=== PATIENT | female | born 1960 | race Caucasian/White ===

== ENCOUNTER → 2020-04-16 | Outpatient (CLI) | payer BC ==
--- NOTE | 2020-04-16 14:00 | Diagnostic Imaging Report ---
INDICATION: Chronic left knee pain. Time of exam 1:39 PM 3 views of the left knee were obtained. There is medial and patellofemoral compartmental degenerative change with joint space narrowing and marginal spurring. Lateral compartment is maintained. Articular surfaces are smooth. No fracture, dislocation or effusion is detected. IMPRESSION: Degenerative changes. No acute bony abnormality is detected. Dictated by: Dictated on workstation # [id number]
== END ==
LOC: RAD FS 13:30
PROVIDERS: ATTEND Nurse Practitioner
DX: M17.12 Unilateral primary osteoarthritis, left knee (principal)
CPT/HCPCS: 73562

== ENCOUNTER → 2021-02-15 | Outpatient (CLI) | payer BC ==
--- NOTE | 2021-02-15 11:34 | Diagnostic Imaging Report ---
INDICATION: Left knee pain. COMPARISON: 04/16/2020. TECHNIQUE: Four radiographic views of the left knee were obtained. FINDINGS: There is no acute fracture or dislocation. The osseous structures are intact. The joint spaces are maintained. There are moderate osteoarthritic changes involving the medial tibial femoral compartment. There is advanced joint space narrowing with sclerotic remodeling of the articular surfaces. Osteophyte formations are also noted. There is no large joint effusion. No unexpected radiopaque foreign bodies are seen. IMPRESSION: 1. No acute fracture or dislocation of the left knee. 2. Moderate osteoarthritic changes, primarily involving the medial tibiofemoral compartment. Dictated by: Dictated on workstation # [id number]
== END ==
LOC: RAD FS 10:52
PROVIDERS: ATTEND Nurse Practitioner
DX: M17.12 Unilateral primary osteoarthritis, left knee (principal)
CPT/HCPCS: 73562

== ENCOUNTER 2021-06-02 05:40 | Outpatient (CLI) | payer BC ==
[~2021-06-02] VITALS: Ht 167.7 cm; Wt 77.1 kg
[2021-06-02 10:41] VITALS: BP 156/91
[2021-06-02 11:26] LABS: BASOPHILS % (AUTO) 1 % (0-10); EOSINOPHILS # (AUTO) 0.1 10^3/uL (0.0-0.3); EOSINOPHILS % (AUTO) 1 % (0-10); HEMATOCRIT 37 % (35-52); HEMOGLOBIN 12.2 g/dL (11.5-16.0); LYMPHOCYTES # (AUTO) 0.8 10^3/uL (1.0-4.0); LYMPHOCYTES % (AUTO) 12 % (12-44); MEAN CORPUSCULAR HEMOGLOBIN 30 pg (25-34); MEAN CORPUSCULAR HGB CONC 33 g/dL (32-36); MEAN CORPUSCULAR VOLUME 88 fL (80-99); MEAN PLATELET VOLUME 10.8 fL (9.0-12.2); MONOCYTES # (AUTO) 0.4 10^3/uL (0.0-1.0); MONOCYTES % (AUTO) 6 % (0-12); NEUTROPHILS # (AUTO) 5.2 10^3/uL (1.8-7.8); NEUTROPHILS % (AUTO) 79 % (42-75); PLATELET COUNT 235 10^3/uL (130-400); WHITE BLOOD COUNT 6.6 10^3/uL (4.3-11.0)
[2021-06-02 11:35] LABS: PROTHROMBIN TIME PATIENT 13.3 SEC (12.2-14.7)
[2021-06-02 11:41] LABS: BILIRUBIN,URINE NEGATIVE (NEGATIVE); CLARITY,URINE CLEAR; COLOR,URINE YELLOW; GLUCOSE, URINE (UA) NEGATIVE (NEGATIVE); KETONES,URINE NEGATIVE (NEGATIVE); LEUKOCYTE ESTERASE ,URINE 1+ (NEGATIVE); NITRITE,URINE NEGATIVE (NEGATIVE); PROTEIN,URINE NEGATIVE (NEGATIVE)
[2021-06-02 11:42] LABS: ALBUMIN 3.7 GM/DL (3.2-4.5); BILIRUBIN,TOTAL 0.3 MG/DL (0.1-1.0); CALCIUM 8.9 MG/DL (8.5-10.1); CREATININE SERUM 0.87 MG/DL (0.60-1.30); POTASSIUM 3.7 MMOL/L (3.6-5.0); TOTAL PROTEIN 6.4 GM/DL (6.4-8.2)
--- NOTE | 2021-06-02 11:44 | Diagnostic Imaging Report ---
EXAMINATION: PA and lateral chest at 11:27 AM. INDICATION: Preop total knee replacement. COMPARISON: There are no prior studies available for comparison. FINDINGS: The heart size is within normal limits. The perihilar markings are somewhat prominent but there is no sign of failure, pneumonia, or pleural effusion. The mediastinum is not widened. The osseous structures are intact. Surgical clips are evident in the right upper quadrant. IMPRESSION: There is no evidence for active disease. Dictated by: Dictated on workstation # [id number]
[2021-06-02 11:48] LABS: ERYTHROCYTE SEDIMENTATION RATE 17 MM/HR (0-30)
[2021-06-02 11:52] LABS: BACTERIA,URINE FEW /HPF; RBC,URINE RARE /HPF
[2021-06-02] MEDS ORDERED: OXYC-556 PO (11:57)
[2021-06-02] MEDS ORDERED: OXYB5TAB13 PO (11:57)
[2021-06-02] MEDS ORDERED: HYDR-700 PO (11:57)
[2021-06-02] MEDS ORDERED: LEVO88CA4 PO (11:57)
[2021-06-02] MEDS ORDERED: ZOLP5TAB7 PO (11:57)
[2021-06-02] MEDS ORDERED: DICY20TA10 PO (11:57)
[2021-06-02] MEDS ORDERED: FLUT9.9S NSEACH (11:57)
[2021-06-02] MEDS ORDERED: LEVO5TAB12 PO (11:57)
[2021-06-02] MEDS ORDERED: SIMV20TA26 PO (11:57)
[2021-06-02] MEDS ORDERED: FEXO-46 PO (11:57)
[2021-06-02] MEDS ORDERED: OMEP20CA18 PO (11:57)
[2021-06-02] MEDS ORDERED: LORA-53 PO (11:57)
[2021-06-02] MEDS ORDERED: CYCL10TA9 PO (11:57)
[2021-06-02] MEDS ORDERED: LOSA50TA63 PO (11:57)
[2021-06-02] MEDS ORDERED: MONT10TA32 PO (11:57)
[2021-06-02] MEDS ORDERED: MELO15TA39 PO (11:57)
== END 2021-06-02 12:02 | disposition home or self-care (01) ==
LOC: PREOP 05:40
PROVIDERS: ATTEND Orthopaedic Surgery
DX: Z01.810 Encounter for preprocedural cardiovascular examination (principal); M17.12 Unilateral primary osteoarthritis, left knee
CPT/HCPCS: 36415; 71046; 80053; 81000; 85025; 85610; 85652; 86850; 86900; 86901; 87077; 87081; 87088; 93005

== ENCOUNTER 2021-06-09 06:04 | Inpatient (IN) | payer BC ==
--- NOTE | 2021-06-02 06:12 | HISTORY AND PHYSICAL ---
DATE OF SERVICE: ADMISSION HISTORY AND PHYSICAL DATE OF SURGERY, DATE OF SERVICE, DATE OF ADMISSION: 06/09/2021. This will be for inpatient admission on 06/09/2021 for left total knee arthroplasty. The patient will require regular inpatient admission due to pain management, need for physical therapy and need for IV pain medication. HISTORY: The patient is a 61-year-old female with complaints of progressively worsening left knee pain. She has undergone treatment with injections as well as anti-inflammatories. She reports the injections do not help at this point. She reports activity limitations because of the knee. She reports difficulty with sleep as well as her activities of daily living because of this, would like to proceed with total knee arthroplasty. Radiographs reveal severe medial and patellofemoral arthrosis. REVIEW OF SYSTEMS: No chest pain, no shortness of breath, no dysuria. PAST MEDICAL HISTORY: Thyroid disease, seasonal rhinitis, reflux and hypertension. PAST SURGICAL HISTORY: Hysterectomy, breast biopsy, cholecystectomy. FAMILY HISTORY: Unknown. PRIMARY CARE PROVIDER: Dr. Gallo. MEDICATIONS: Dicyclomine, hydroxyzine, Vaniqa, Ambien, levothyroxine, omeprazole, oxybutynin, cyclobenzaprine, simvastatin, loratadine, Topamax, diclofenac. ALLERGIES: ERYTHROMYCIN. SOCIAL HISTORY: The patient denies alcohol and tobacco use. PHYSICAL EXAMINATION: GENERAL: The patient is well developed, well nourished, in no acute distress. HEENT: Normocephalic, atraumatic. Pupils are equal, round and reactive to light. Oropharynx is clear. NECK: Supple, with no lymphadenopathy. LUNGS: Clear to auscultation bilaterally. HEART: Regular rate and rhythm. ABDOMEN: Soft, nontender, nondistended. EXTREMITIES: The left knee demonstrates varus alignment. She ambulates with an antalgic gait on the left. She is tender along the medial joint line. She has patellofemoral crepitus with range of motion 0/2/115. No varus or valgus laxity. Negative anterior and posterior drawer. IMPRESSION: Severe left knee osteoarthritis, unresponsive to conservative measures. PLAN: Left total knee arthroplasty. The risks, benefits, options, ramifications and recovery have been discussed at length with the patient. She understands and wishes to proceed. Job ID: [id number] DocumentID: [id number] Dictated Date: 05/25/2021 15:20:23 Edge Grinder Date: 05/25/2021 15:43:43 Dictated By: DAVID THEODORE MD
[~2021-06-09] VITALS: Ht 167 cm; Wt 74.1 kg
[2021-06-09] VITALS (11 sets, daily range): BP systolic 138–163; BP diastolic 73–93
[~2021-06-09 06:04] MED LIST: CYCL10TA9 PO; DICY20TA10 PO; FEXO-46 PO; FLUT9.9S NSEACH; HYDR-700 PO; LEVO5TAB12 PO; LEVO88CA4 PO; LORA-53 PO; LOSA50TA63 PO; MELO15TA39 PO; MONT10TA32 PO; OMEP20CA18 PO; OXYB5TAB13 PO; OXYC-556 PO; SIMV20TA26 PO; ZOLP5TAB7 PO
[2021-06-09] MEDS ORDERED: CEFUROXIME INJECTION 1,500 MG in WATER (STERILE) FOR INJECTION 15 ML IV ONE (06:15)
[2021-06-09] MEDS ORDERED: ROPIVACAINE 5MG/ML 30ML VIAL ONE (06:41)
[2021-06-09] MEDS ORDERED: MIDAZOLAM 2 MG/2 ML (VERSED) VIAL ONE (06:41)
[2021-06-09] MEDS: LACTATED RINGERS 1,000 ML IV PRN ×2 (06:51→07:45)
[2021-06-09] MEDS ORDERED: fentaNYL INJ 100 MCG/2 ML AMP ONE ×2 (06:57→09:14)
[2021-06-09] MEDS ORDERED: diphenhydrAMINE 50 MG/ML INJ (BENADRYL) IVP PRN (07:30)
[2021-06-09] MEDS ORDERED: ONDANSETRON 4 MG/2 ML (SDV) Z0FRAN IVP PRN ×2 (07:30→09:15)
[2021-06-09] MEDS ORDERED: NALOXONE 0.4 MG/ML 1 ML (NARCAN) VIAL IV PRN (07:30)
[2021-06-09] MEDS ORDERED: morphine PCA 100 MG/100 ML BAG IV PRN (07:30)
--- NOTE | 2021-06-09 07:33 | Progress Note-Pre Operative ---
Pre-Operative Progress Note H&P Reviewed The H&P was reviewed, patient examined and no changes noted. Date Seen by Provider: Jun 09, 2021 Time Seen by Provider: 07:20 Date H&P Reviewed: Jun 09, 2021 Time H&P Reviewed: 07:11 Pre-Operative Diagnosis: left knee primary osteoarthritis DAVID THEODORE MD Jun 09, 2021 07:33
--- NOTE | 2021-06-09 07:34 | Progress Note-Post Operative ---
Post-Operative Progess Note Surgeon (s)/County Tax Assessor (s) Surgeon DAVID THEODORE MD County Tax Assessor: Fili Delgado Pre-Operative Diagnosis left knee primary osteoarthritis Post-Operative Diagnosis left knee primary osteoarthritis Procedure & Operative Findings Date of Procedure 06/09/21 Procedure Performed/Findings left total knee arthroplasty Anesthesia Type GETA Estimated Blood Loss Estimated blood loss (mL): minimal Specimens/Packing Specimens Removed none Packing: none DAVID THEODORE MD Jun 09, 2021 07:34
--- NOTE | 2021-06-09 07:36 | D/C HH Face to Face Order ---
D/C Face to Face Orders Reconcile Patient Problems Problems Reviewed?: Yes Instructions for Patient Via [facility] App, Patient Instructions/FollowUp: three weeks Physician to follow Patient: three weeks Discharge Diet for Home: Regular Diet Patient Data-Allergies,Ht & Wt Patient Allergies: Coded Allergies: erythromycin base (Verified Allergy, Unknown, Vomiting, 06/02/21) Home Health Need/Face to Face Date of Face to Face: Jun 09, 2021 Clinical Findings: Muscle weakness, Pain with ambulation, Unsteady gait I have seen Pt [id number]: Yes Discharged To: Home Diagnosis/Conditions: left total knee arthroplasty Patient is Homebound due to: [place] fall risk due to instabilty, Muscle weakness, Pain w/ambulation Homebound Status Due to the above stated illness, injury or surgical procedure (medical condition or diagnosis) and associated clinical findings, the patient is homebound because of his/her inability to leave home except with aid of a supportive device and/or person AND leaving the home requires a considerable and taxing effort or is medically contraindicated. Pt req the following assistanc: [facility] Nursing Orders Home Health Services Order: Physical Therapy-Evaluate & Treat DC left knee ama and apply steri strips on 06/23/21 Home Health Infusion Therapy Line Start Date: Jun 09, 2021 Therapy Orders Therapy Orders: Physical Therapy, PT to assess for OT Therapy Specific Orders: Eval assistive deivces, Teach enviro modifications/safety, Gait training, Increase strength/endurance, Provider maintenance therapy, Restore ROM Certify Stmt I certify that this patient is under my care and that I, a nurse practitioner or a physician; a grooming assistant working with me, had a face to face encounter that - meets the physician face to face encounter requirements with this patient as dated. DAVID THEODORE MD Jun 09, 2021 07:36
[2021-06-09] MEDS ORDERED: INTRA-ARTICULAR IU ONE ×5 (07:45)
[2021-06-09] MEDS ORDERED: proPOfol 200 MG/20 ML (DIPRIVAN) VIAL IV ONE (09:00)
[2021-06-09] MEDS ORDERED: LIDOCAINE PF 2% 5 ML (XYLOCAINE) VIAL ONE (09:00)
[2021-06-09] MEDS ORDERED: SEVOFLURANE (ULTANE) 15 ML INHAL SOLN ONE (09:01)
[2021-06-09] MEDS ORDERED: ONDANSETRON 4 MG/2 ML (SDV) Z0FRAN ONE (09:01)
[2021-06-09] MEDS ORDERED: TRANEXAMIC ACID 100 MG/ML 10 ML INJECTION ONE (09:01)
[2021-06-09] MEDS ORDERED: fentaNYL INJ 100 MCG/2 ML AMP IVP ONE (09:15)
[2021-06-09] MEDS ORDERED: HYDROmorphone 2 MG/ML VIAL (DILAUDID) IV ONE (09:15)
--- NOTE | 2021-06-09 09:15 | Anesthesia-General Post-Op ---
General Patient Condition Mental Status/LOC: Same as Preop Cardiovascular: Satisfactory Nausea/Vomiting: Absent Respiratory: Satisfactory Pain: Controlled Complications: Absent Post Op Complications Complications None Follow Up Care/Instructions Patient Instructions None needed. Anesthesia/Patient Condition Patient Condition Patient is doing well, no complaints, stable vital signs, no apparent adverse anesthesia problems. No complications reported per nursing. SHANNAN APONTE CRNA Jun 09, 2021 09:15
[2021-06-09] MEDS ORDERED: HYDROmorphone 2 MG/ML VIAL (DILAUDID) ONE (09:32)
--- NOTE | 2021-06-09 10:22 | Diagnostic Imaging Report ---
INDICATION: Status post left knee replacement. COMPARISON: None. FINDINGS: Two views of the left knee were obtained. Expected postoperative changes are seen from left knee total arthroplasty. Femoral and tibial components appear well-seated. There is no evidence of periprosthetic fracture. There is a small amount of subcutaneous emphysema in the soft tissues over the knee. Skin ama are seen centrally over the anterior aspect of the knee. No unexpected radiopaque foreign bodies are identified. IMPRESSION: Expected postsurgical changes from left knee total arthroplasty, as described above. No unexpected radiopaque foreign bodies. Dictated by: Dictated on workstation # [id number]
[2021-06-09] MEDS ORDERED: morphine PCA 100 MG/100 ML BAG IV ONE (10:27)
[2021-06-09] MEDS ORDERED: NS IV 1000 ML 1,000 ML ONE (10:32)
[2021-06-09] MEDS: NS IV 1000 ML 1,000 ML IV SCH ×2 (10:53→22:12)
[2021-06-09] MEDS: SENNA W/DOCUSATE (SENOKOT S) TABLET PO SCH ×2 (11:05→22:12)
--- NOTE | 2021-06-09 11:12 | Progress Note ---
Standard Progress Note Progress Notes/Assess & Plan Date Seen by a Provider: Jun 09, 2021 Time Seen by a Provider: 09:10 Progress/Assessment & Plan post op check no complaints radiographs--HW well positioned without fracture LLE--2 plus DP pulse with brisk cap refill, intact DF and PF of toes and ankle with intact sensation to light touch throughout s/p LTKA mobilize as able DAVID THEODORE MD Jun 09, 2021 11:12
--- NOTE | 2021-06-09 14:10 | Physical Therapy Evaluation ---
PT Evaluation-General Medical Diagnosis Admission Date Jun 09, 2021 at 06:04 Medical Diagnosis: left TKA Onset Date: Jun 09, 2021 Therapy Diagnosis Therapy Diagnosis: impaired mobility, strength, endurance, ROM Weight Bear Status Left Lower Extremity: Left Weight Bearing/Tolerated Referral Physician: Zachary Reason for Referral: Evaluation/Treatment Medical History Additional Medical History PAST MEDICAL HISTORY: Thyroid disease, seasonal rhinitis, reflux and hypertension. PAST SURGICAL HISTORY: Hysterectomy, breast biopsy, cholecystectomy. Reviewed History: Yes Social History Current Living Status: Significant Other Entry Into Home: Stairs With Railing PT Steps Into Home: 8 Prior Prior Level of Function SCALE: Activities may be completed with or without assistive devices. 1-Xplamicsam-oqhuhss completes the activity by him/herself with no assistance from a helper. 5-Set-up or Clean-up Assistance-helper sets up or cleans up; patient completes activity. [place] assists only prior to or following the activity. 4-Supervision or Touching Assistance-helper provides verbal cues and/or touching/steadying and/or contact guard assistance as patient completes activity. Assistance may be provided throughout the activity or intermittently. 3-Partial/Moderate Assistance-helper does LESS THAN HALF the effort. [place] lifts, holds or supports trunk or limbs, but provides less than half the effort. 2-Substantial/Maximal Assistance-helper does MORE THAN HALF the effort. [place] lifts or holds trunk or limbs and provides more than half the effort. 6-Wajozcxwo-bcvega does ALL the effort. Patient does none of the effort to complete the activity. Or, the assistance of 2 or more helpers is required for the patient to complete the activity. If activity was not attempted, code reason: 7-Patient Refused. 9-Not Applicable-not attempted and the patient did not perform the activity before the current illness, exacerbation or injury. 10-Not Attempted due to Environmental Limitations-(lack of equipment, weather restraints, etc.). 88-Not Attempted due to Medical Conditions or Safety Concerns. Bed Mobility: 6 Transfers (B,C,W/C): 6 Gait: 6 Stairs: 6 Indoor Mobility (Ambulation): Independent Stairs: Independent PT Evaluation-Current Subjective Patient in bed pre tx, agrees to PT, has 7/10 pain in left knee. Pt/Family Goals to be independent at home Objective Patient Orientation: Person, Place, Situation Attachments: IV ROM/Strength ROM Lower Extremities left knee flexion 80 degrees, extension +3 degrees Sensory Vision: Wears Glasses Hearing: Functional Sensation Right Lower Extremit: Intact Sensation Left Lower Extremity: Intact Transfers Roll Left to Right (QC): 6 Sit to Lying (QC): 6 Lying to Sitting/Side of Bed(Q: 6 Sit to Stand (QC): 4 Chair/Rhs-xe-Euojt Xfer(QC): 4 Toilet Transfer (QC): 4 Gait Does the Patient Walk?: Yes Mode of Locomotion: Walk Anticipated Mode of Locomotion: Walk Walk 10 feet (QC): 4 Distance: 20' Gait Assistive Device: FWW Comments/Gait Description Patient ambulates into the restroom and then back to bed. Patient has a slow, antalgic gait, flexed left knee, poor step through. Balance Sitting Static: Normal Sitting Dynamic: Normal Standing Static: Fair Standing Dynamic: Fair Treatment supine total knee protocol x10 (AP, QS, HS, SAQ, SLR), CPM donned and fit to leg and set at 60/-2. Assessment/Needs Patient in bed post tx with nurse call, phone, tray, all needs met. Patient has impaired mobility, strength, endurance, ROM. Patient needs CGA to transfer and ambulate. Rehab Potential: Fair PT Balance Truing Inspector Goals Balance Truing Inspector Goals PT Balance Truing Inspector Goals Time Frame: Jun 16, 2021 Roll Left & Right (QC): 6 Sit to Lying (QC): 6 Lying-Sitting on Side/Bed(QC): 6 Sit to Stand (QC): 5 Chair/Mvv-mn-Heozu Xfer(QC): 5 Walk 10 feet (QC): 5 Walk 50ft with 2 Turns (QC): 5 Walk 150 ft (QC): 5 1 Step (curb) (QC): 4 4 Steps (QC): 4 PT Plan Problem List Problem List: Activity Tolerance, Functional Strength, Safety, Balance, Gait, Transfer, Bed Mobility, ROM Treatment/Plan Treatment Plan: Continue Plan of Care Treatment Plan: Bed Mobility, Education, Functional Activity Javier, Functional Strength, Gait, Safety, Therapeutic Exercise, Transfers Treatment Duration: Jun 16, 2021 Frequency: 11 times per week Estimated Hrs Per Day: .25 hour per day Patient and/or Family Agrees t: Yes Safety Risks/Education Patient Education: Gait Training, Transfer Techniques, Reviewed Use of Ice, Correct Positioning, Safety Issues Teaching Recipient: Patient Teaching Methods: Demonstration, Discussion Response to Teaching: Reinforcement Needed Discharge Recommendations Plan Patient will perform bed mobility and transfer training, balance and endurance training, functional strengthening, stair training, gait training, and education, to improve functional mobility and independence at home. Therapy Discharge Recommendati: Home & Family, Post Acute PT Time/GCodes Time In: 1309 Time Out: 1333 Total Billed Treatment Time: 24 Total Billed Treatment 1 visit EVL 10' FA 14' YEFRI WOODY PT Jun 09, 2021 14:10
[2021-06-09] MEDS: CEFUROXIME INJECTION 750 MG in WATER (STERILE) FOR INJECTION 10 ML IV SCH (15:46)
[2021-06-09] MEDS: HYDROmorphone (DILAUDID) 4 MG TAB PO PRN ×3 (15:49→22:22)
--- NOTE | 2021-06-09 15:56 | OPERATIVE REPORT ---
DATE OF SERVICE: 06/09/2021 PREOPERATIVE DIAGNOSIS: Left knee primary osteoarthritis. POSTOPERATIVE DIAGNOSIS: Left knee primary osteoarthritis. PROCEDURE PERFORMED: Left total knee arthroplasty. SURGEON: David Theodore MD. OPERATOR AND TRUCK DRIVER: Isael Sharma, who assisted throughout the procedure and closed the incision. ANESTHESIA: General endotracheal by Ratna Rendon CRNA. TOURNIQUET TIME: Approximately 60 minutes at 300 mmHg. ESTIMATED BLOOD LOSS: Minimal. DRAINS: None. COMPLICATIONS: None. POSTOPERATIVE PLAN: Routine protocol. The patient was transferred to the recovery room awake and in stable condition. MATERIALS: Microport cemented size 4 femur with cemented size 4 tibia, a 10 mm insert and 29 patellar button. STATEMENT OF MEDICAL NECESSITY: The patient is a 61-year-old female with a longstanding progressive left knee pain. Radiographs revealed severe medial and patellofemoral arthrosis. She has undergone treatment with multiple injections as well as activity modifications and anti-inflammatories without relief. Due to functional impairment and failure to improve with conservative measures, the patient elected to proceed with surgical intervention. DESCRIPTION OF PROCEDURE: After the risks and benefits of the procedure were discussed and questions were answered, an informed consent was signed and placed on chart, the operative site was confirmed in the preoperative holding area and initialed by the surgeon. The patient was then transferred to the operating room and after adequate levels of general endotracheal anesthetic were obtained, a timeout was called, confirming the operative site. The left lower extremity was prepped and draped in the usual sterile fashion. With the knee flexed and the leg elevated, tourniquet was inflated to 300 mmHg. A standard anterior approach was utilized. Hemostasis was obtained with cautery. A medial parapatellar arthrotomy was performed leaving 1 cm cuff on the patella for later reattachment. A portion of the fat pad was resected. A subperiosteal release was performed in the proximal medial tibia being careful to stay on the bony surface. The ACL was resected. Intramedullary guide was passed into the femoral canal and the distal cutting block was placed. Distal cut was made and the femur sized to a size 4. The 4 cutting block was placed parallel to the epicondylar axis and cuts were made from posterior to anterior. Subperiosteal release was then carefully performed on the posterior distal femur, being careful to stay on the bony surface. The intramedullary guide was then passed into the tibia. The cutting block was placed. The drop dereje transected the intermalleolar axis and the cut was made. The four baseplate provided excellent coverage. This was pinned into position and then prepared with the drill and keel punch. The femoral trial was placed and the trochlear cut was made. A 10 mm insert was placed and the patella was then prepared by resecting 10 mm off the undersurface using the freehand technique. The patella guide was then placed and the peg holes were drilled. A 29 trial was placed. The knee was taken through range of motion. Full extension was easily obtained, a 120 degrees of flexion with gravity was easily obtained. The patella tracked well. There was no significant anterior , posterior, medial or anterior laxity in flexion or extension. The trials were removed. The bone ends were irrigated with pulse lavage. The periarticular block was placed in the posterior capsule, medial and lateral retinaculum, extensor mechanism, and subcutaneous tissues. The bone ends were further irrigated and dried. The tibial baseplate was cemented into position. Excessive cement was removed and then the tibial insert was placed. The femoral prosthesis was then cemented into position and the knee was brought out in full extension until cement had cured. Excessive cement was removed. The undersurface of the patella was irrigated and dried. The patellar button was cemented into position. Excessive cement was removed. Once the cement had cured, the knee was taken through range of motion. Full extension was easily obtained. A120 degrees of flexion with gravity was easily obtained. The patella tracked well. There was no anterior/posterior or medial/lateral laxity in flexion or extension. The joint was further irrigated with the pulse lavage. The arthrotomy was closed with #2 T[place] in ahbdbf-oe-jrgkj interrupted fashion. Knee was flexed. The repair was stable and the patella tracked well. The subcutaneous tissues were further irrigated with pulse lavage using a total of 6 liters throughout the procedure. A 0 Vicryl was used to close deep subcutaneous layer, 2-0 Vicryl for the superficial subcutaneous layer, and ama were used on the skin. A soft dressing was applied. The tourniquet was deflated and the patient was transferred to the recovery room awake and in stable condition. Job ID: [id number] DocumentID: [id number] Dictated Date: 06/09/2021 09:12:03 Wildlife Officer Date: 06/09/2021 15:55:41 Dictated By: DAVID THEODORE MD
[2021-06-09] MEDS ORDERED: OMEPRAZOLE 20 MG (PriLOSEC) CAP NON-FORMULARY PO SCH (21:00)
[2021-06-09] MEDS: PANTOPRAZOLE 20 MG TABLET (PROTONIX) PO SCH (22:12)
[2021-06-10] MEDS: CEFUROXIME INJECTION 750 MG in WATER (STERILE) FOR INJECTION 10 ML IV SCH (00:01)
[2021-06-10 00:12] VITALS: BP 138/68
[2021-06-10] MEDS: HYDROmorphone (DILAUDID) 4 MG TAB PO PRN ×7 (02:59→18:03)
[2021-06-10 03:47] VITALS: BP 136/65
[2021-06-10 06:31] LABS: BASOPHILS % (AUTO) 0 % (0-10); EOSINOPHILS # (AUTO) 0.1 10^3/uL (0.0-0.3); EOSINOPHILS % (AUTO) 1 % (0-10); HEMATOCRIT 31 % (35-52); HEMOGLOBIN 10.3 g/dL (11.5-16.0); LYMPHOCYTES # (AUTO) 1.1 10^3/uL (1.0-4.0); LYMPHOCYTES % (AUTO) 9 % (12-44); MEAN CORPUSCULAR HEMOGLOBIN 30 pg (25-34); MEAN CORPUSCULAR HGB CONC 34 g/dL (32-36); MEAN CORPUSCULAR VOLUME 89 fL (80-99); MEAN PLATELET VOLUME 11.3 fL (9.0-12.2); MONOCYTES # (AUTO) 1.1 10^3/uL (0.0-1.0); MONOCYTES % (AUTO) 9 % (0-12); NEUTROPHILS # (AUTO) 9.6 10^3/uL (1.8-7.8); NEUTROPHILS % (AUTO) 80 % (42-75); PLATELET COUNT 220 10^3/uL (130-400)
[2021-06-10] MEDS: MULTIVIT W/MINERALS TAB (THERAGRAN M) PO SCH (06:33)
[2021-06-10 06:57] LABS: ALBUMIN 3.4 GM/DL (3.2-4.5); BILIRUBIN,TOTAL 0.4 MG/DL (0.1-1.0); CALCIUM 8.2 MG/DL (8.5-10.1); CREATININE SERUM 0.74 MG/DL (0.60-1.30); POTASSIUM 3.5 MMOL/L (3.6-5.0); TOTAL PROTEIN 5.7 GM/DL (6.4-8.2)
[2021-06-10 07:40] VITALS: BP 132/71
--- NOTE | 2021-06-10 08:04 | Progress Note ---
Standard Progress Note Progress Notes/Assess & Plan Date Seen by a Provider: Jun 10, 2021 Time Seen by a Provider: 08:03 Progress/Assessment & Plan post op check no complaints radiographs--HW well positioned without fracture LLE--2 plus DP pulse with brisk cap refill, intact DF and PF of toes and ankle with intact sensation to light touch throughout s/p LTKA mobilize as able Final Diagnosis no complaints ] Vital Signs Date Time Temp Pulse Resp B/P (MAP) Pulse Ox O2 Delivery O2 Flow Rate FiO2 06/10/21 07:40 37.2 90 16 132/71 (91) 94 Room Air 06/10/21 06:30 16 06/10/21 03:47 36.8 77 18 136/65 (88) 92 Room Air 06/10/21 00:12 36.9 72 18 138/68 (91) 99 Room Air 06/09/21 21:00 Room Air 06/09/21 20:39 36.4 71 20 148/76 (100) 96 Room Air 06/09/21 16:00 36.5 82 20 157/73 (101) 96 Room Air 06/09/21 11:35 36.2 88 16 155/76 (102) 99 Room Air 06/09/21 11:21 Room Air 06/09/21 10:55 18 06/09/21 10:10 36.0 87 20 138/77 (97) 97 Room Air 06/09/21 10:10 Room Air 06/09/21 09:58 36.1 12 143/77 (99) 97 Room Air 06/09/21 09:50 12 147/82 (103) 98 Room Air 06/09/21 09:40 16 153/93 (113) 100 OxyMask 10 06/09/21 09:40 OxyMask 10 06/09/21 09:30 13 155/91 (112) 100 OxyMask 10 06/09/21 09:20 12 153/77 (102) 100 OxyMask 10 06/09/21 09:10 OxyMask 10 06/09/21 09:10 36.4 22 150/83 (105) 99 OxyMask 10 I & O 06/10/21 07:00 Intake Total 3015 ml Output Total 600 ml Balance 2415 ml Laboratory Tests Test 06/10/21 05:47 Range/Units White Blood Count 12.0 H 4.3-11.0 10^3/uL Red Blood Count 3.46 L 3.80-5.11 10^6/uL Hemoglobin 10.3 L 11.5-16.0 g/dL Hematocrit 31 L 35-52 % Mean Corpuscular Volume 89 80-99 fL Mean Corpuscular Hemoglobin 30 25-34 pg Mean Corpuscular Hemoglobin Concent 34 32-36 g/dL Red Cell Distribution Width 13.5 10.0-14.5 % Platelet Count 220 130-400 10^3/uL Mean Platelet Volume 11.3 9.0-12.2 fL Immature Granulocyte % (Auto) 1 % Neutrophils (%) (Auto) 80 H 42-75 % Lymphocytes (%) (Auto) 9 L 12-44 % Monocytes (%) (Auto) 9 0-12 % Eosinophils (%) (Auto) 1 0-10 % Basophils (%) (Auto) 0 0-10 % Neutrophils # (Auto) 9.6 H 1.8-7.8 10^3/uL Lymphocytes # (Auto) 1.1 1.0-4.0 10^3/uL Monocytes # (Auto) 1.1 H 0.0-1.0 10^3/uL Eosinophils # (Auto) 0.1 0.0-0.3 10^3/uL Basophils # (Auto) 0.0 0.0-0.1 10^3/uL Immature Granulocyte # (Auto) 0.1 0.0-0.1 10^3/uL Sodium Level 134 L 135-145 MMOL/L Potassium Level 3.5 L 3.6-5.0 MMOL/L Chloride Level 103 98-107 MMOL/L Carbon Dioxide Level 22 21-32 MMOL/L Anion Gap 9 5-14 MMOL/L Blood Urea Nitrogen 10 7-18 MG/DL Creatinine 0.74 0.60-1.30 MG/DL Estimat Glomerular Filtration Rate 80 BUN/Creatinine Ratio 14 Glucose Level 112 H 70-105 MG/DL Calcium Level 8.2 L 8.5-10.1 MG/DL Corrected Calcium 8.7 8.5-10.1 MG/DL Total Bilirubin 0.4 0.1-1.0 MG/DL Aspartate Amino Transf (AST/SGOT) 13 5-34 U/L Alanine Aminotransferase (ALT/SGPT) 12 0-55 U/L Alkaline Phosphatase 76 40-136 U/L Total Protein 5.7 L 6.4-8.2 GM/DL Albumin 3.4 3.2-4.5 GM/DL LLE--dressing intact. NVI distally no calf tenderness. Neg Rafael's s/p LTKA doing well PT/OT DAVID THEODROE MD Jun 10, 2021 08:04
[2021-06-10] MEDS: ASPIRIN E.C. 81 MG (ECOTRIN) TAB PO SCH (09:00)
[2021-06-10] MEDS: PANTOPRAZOLE 20 MG TABLET (PROTONIX) PO SCH ×2 (09:00→21:45)
[2021-06-10] MEDS: SENNA W/DOCUSATE (SENOKOT S) TABLET PO SCH ×2 (09:01→21:45)
[2021-06-10] MEDS: ENOXAPARIN 30 MG/0.3 ML (LOVENOX) SYR SC SCH ×2 (09:02→18:03)
--- NOTE | 2021-06-10 10:26 | Occupational Therapy Eval ---
OT Evaluation-General/PLF Medical Diagnosis Admission Date Jun 09, 2021 at 06:04 Medical Diagnosis: left TKA Onset Date: Jun 09, 2021 Therapy Diagnosis Therapy Diagnosis: decreased ADL status Precautions Precautions/Isolations: Fall Prevention, Standard Precautions Referral Physician: Zachary Referral Reason: Evaluation/Treatment Medical History Additional Medical History thyroid disease, HTN, reflux, breast biopsy Current History s/p L TKA 06/09/21 Social History Current Living Status: Significant Other Entry Into Home: Stairs With Railing Steps Into Home: 8 ADL-Prior Level of Function SCALE: Activities may be completed with or without assistive devices. 9-Bvarqafmlo-tkvxaze completes the activity by him/herself with no assistance from a helper. 5-Set-up or Clean-up Assistance-helper sets up or cleans up; patient completes activity. [place] assists only prior to or following the activity. 4-Supervision or Touching Assistance-helper provides verbal cues and/or touching/steadying and/or contact guard assistance as patient completes activity. Assistance may be provided throughout the activity or intermittently. 3-Partial/Moderate Assistance-helper does LESS THAN HALF the effort. [place] lifts, holds or supports trunk or limbs, but provides less than half the effort. 2-Substantial/Maximal Assistance-helper does MORE THAN HALF the effort. [place] lifts or holds trunk or limbs and provides more than half the effort. 8-Amjpqisat-rlgknr does ALL the effort. Patient does none of the effort to complete the activity. Or, the assistance of 2 or more helpers is required for the patient to complete the activity. If activity was not attempted, code reason: 7-Patient Refused. 9-Not Applicable-not attempted and the patient did not perform the activity before the current illness, exacerbation or injury. 10-Not Attempted due to Environmental Limitations-(lack of equipment, weather restraints, etc.). 88-Not Attempted due to Medical Conditions or Safety Concerns. ADL PLOF Comments Pt reports independent with ADLs and functional mobility at PLOF, no AD/AE Self Care: Independent Functional Cognition: Independent DME/Equipment: Bath Chair, Shower OT Current Status Subjective Pt laying in bed, states she hasn't had much sleep over the last few nights. Agreeable to OT eval. Mental Status/Objective Patient Orientation: Person, Place, Situation Attachments: IV Current Upper Extremity ROM WFL Upper Extremity Coordination WFL Upper Extremity Strength grossly 3+/5 ADL-Treatment Eating (QC): 6 (per pt report) Oral Hygiene (QC): 5 (based on clincial judgment.) Other Treatments Pt laying in bed, states she hasn't had much sleep and was trying to rest. OT educated pt on purpose/benefit of OT. Pt provided information about PLOF and home set up. OT educated pt on activity modification, energy conservation, and pain management strategies to increase independence with ADLs at discharge, she verbalizes understanding. Pt asks appropriate questions about how to perform ADLs at discharge, OT answered questions to pt's satisfaction. Pt has built in benches in shower, but indicates a friend has a shower chair she could use if needed. Pt reports no concerns with her ability to complete ADLs at discharge, as her will be able to assist her if needed. Post tx, pt in bed, call light in reach and all needs met. Education OT Patient Education: Correct positioning, Energy conservation, Modified ADL techniques, Progress toward Goal/Update tx plan, Purpose of tx/functional activities, Rehab process, Safety issues, Transfer techniques, Use of adapted equipment Teaching Recipient: Patient Teaching Methods: Discussion Response to Teaching: Verbalize Understanding OT Folder Seamer Goals Folder Seamer Goals Time Frame: Jun 18, 2021 Eating (QC): 6 Oral Hygiene (QC): 6 Toileting Hygiene (QC): 4 Shower/Bathe Self (QC): 4 Upper Body Dressing (QC): 5 Lower Body Dressing (QC): 4 On/Off Footwear (QC): 3 Additional Goals: 1-Demonstrate ADL Tasks, 2-Verbalize Understanding, 3- ImproveStrength/Javier 1=Demonstrate adherence to instructed precautions during ADL tasks. 2=Patient will verbalize/demonstrate understanding of assistive devices/modifications for ADL. 3=Patient will improve strength/tolerance for activity to enable patient to perform ADL's. OT Education/Plan Problem List/Assessment Assessment: Decreased Activ Tolerance, Decreased UE Strength, Impaired Funct Balance, Impaired I ADL's, Impaired Self-Care Skills Pt would benefit from short term skilled OT services in order to address concerns pt may have with ADL function at discharge. Discharge Recommendations Plan/Recommendations: Continue POC Treatment Plan/Plan of Care Patient would benefit from OT for education, treatment and training to promote independence in ADL's, mobility, safety and/or upper extremity function for ADL's. Plan of Care: ADL Retraining, Functional Mobility, UE Funct Exercise/Act Treatment Duration: Jun 18, 2021 Frequency: 5 times per week Estimated Hrs Per Day: .25 hour per day Rehab Potential: Fair Time/GCodes Start Time: 09:44 Stop Time: 10:00 Total Time Billed (hr/min): 16 Billed Treatment Time 1, DAWSON KIM OT Jun 10, 2021 10:26
--- NOTE | 2021-06-10 10:35 | Physical Therapy Daily Note ---
PT Daily Note-Current Subjective Patient agrees to PT. She reports she is very tired and didn't sleep much last night. Pain Numeric Pain Scale: 7 Location: Left Location Body Site: Knee Pain Description: Acute Mental Status Patient Orientation: Normal For Age Attachments: Polar Pack, IV Transfers SCALE: Activities may be completed with or without assistive devices. 4-Ahsydkaadn-wkhrvam completes the activity by him/herself with no assistance from a helper. 5-Set-up or Clean-up Assistance-helper sets up or cleans up; patient completes activity. [place] assists only prior to or following the activity. 4-Supervision or Touching Assistance-helper provides verbal cues and/or touching/steadying and/or contact guard assistance as patient completes activity. Assistance may be provided throughout the activity or intermittently. 3-Partial/Moderate Assistance-helper does LESS THAN HALF the effort. [place] lifts, holds or supports trunk or limbs, but provides less than half the effort. 2-Substantial/Maximal Assistance-helper does MORE THAN HALF the effort. [place] lifts or holds trunk or limbs and provides more than half the effort. 5-Pwlxrqowl-rbhapb does ALL the effort. Patient does none of the effort to complete the activity. Or, the assistance of 2 or more helpers is required for the patient to complete the activity. If activity was not attempted, code reason: 7-Patient Refused. 9-Not Applicable-not attempted and the patient did not perform the activity before the current illness, exacerbation or injury. 10-Not Attempted due to Environmental Limitations-(lack of equipment, weather restraints, etc.). 88-Not Attempted due to Medical Conditions or Safety Concerns. Sit to Lying (QC): 6 Lying to Sitting/Side of Bed(Q: 6 Sit to Stand (QC): 6 Chair/Jab-cv-Tskbt Xfer(QC): 6 Weight Bearing Left Lower Extremity: Left Weight Bearing/Tolerated Gait Training Does the Patient Walk?: Yes Distance: 300' Walk 10 feet (QC): 5 Walk 50 ft with 2 Turns(QC): 5 Walk 150 ft (QC): 5 Gait Assistive Device: FWW slow, antalgic, reciprocal pattern Exercises Supine Ex: Ankle pumps, Quad Set, Heel Slides, Straight leg raise Supine Reps: 15 Seated Therapy Exercises: Long arc quads Seated Reps: 15 Assessment Patient tolerated treatment well and returned to bed due to fatigue. PT to increase activity as tolerated by patient. Patient AROM 8-84 degrees left knee PT Mcfp Goals Mcfp Goals PT Social Contact Worker Goals Time Frame: Jun 16, 2021 Roll Left & Right (QC): 6 Sit to Lying (QC): 6 Lying-Sitting on Side/Bed(QC): 6 Sit to Stand (QC): 5 Chair/Jil-jv-Bmshp Xfer(QC): 5 Walk 10 feet (QC): 5 Walk 50ft with 2 Turns (QC): 5 Walk 150 ft (QC): 5 1 Step (curb) (QC): 4 4 Steps (QC): 4 PT Plan Treatment/Plan Treatment Plan: Continue Plan of Care Treatment Plan: Bed Mobility, Education, Functional Activity Javier, Functional Strength, Gait, Safety, Therapeutic Exercise, Transfers Treatment Duration: Jun 16, 2021 Frequency: 11 times per week Estimated Hrs Per Day: .25 hour per day Patient and/or Family Agrees t: Yes Time/GCodes Time In: 830 Time Out: 855 Total Billed Treatment Time: 25 Total Billed Treatment 1 visit GT 12 min EX 13 min AFTAB BENEDICT PT Jun 10, 2021 10:35
[2021-06-10] MEDS: NS IV 1000 ML 1,000 ML IV SCH (10:39)
[2021-06-10 11:42] VITALS: BP 136/79
[2021-06-10] MEDS ORDERED: LORATADINE (CLARITIN) 10 MG TAB PO PRN (11:45)
[2021-06-10] MEDS ORDERED: CYCLOBENZAPRINE 10 MG (FLEXERIL) TAB PO PRN (12:00)
[2021-06-10] MEDS ORDERED: DICYCLOMINE 10 MG (BENTYL) CAP PO PRN (12:00)
[2021-06-10] MEDS ORDERED: FLUTICASONE NASAL SPRAY (FLONASE) 16 GM BTL NS PRN (12:00)
[2021-06-10] MEDS ORDERED: hydrOXYzine (VISTARIL/ATARAX) 25 MG capsule/tablet PO PRN (12:00)
[2021-06-10] MEDS: OXYBUTYNIN (DITROPAN) 5 MG TAB PO SCH ×2 (12:15→21:45)
--- NOTE | 2021-06-10 14:35 | Consultation - Hospitalist ---
SKIP ADKINS MED STUDENT 06/10/21 1435: HPI History of Present Illness: HPI/Chief Complaint CC: L total knee arthroplasty 06/09 HPI: Pt was consulted for hospitalist coverage after pt underwent L total knee arthroplasty. Procedure was completed yesterday due to severe medial and patellofemoral arthrosis. She states she had trouble sleeping overnight due to pain. Currently rates it 5/10 to her L knee; has a Morphine HAT SPRAYER 1mg/10min in place that she has been using, and has also been requesting Dilaudid PO 4mg every 4hrs. No complaints of N/V, abd pain, fevers/chills, dysuria. Not passing flatus. Mainly has questions regarding pain management after discharge. Source: patient, RN/MD Exam Limitations: no limitations Date Seen 06/10/21 Attending Physician David Stanton MD PCP No,Local Physician Referring Physician Date of Admission Jun 09, 2021 at 06:04 Home Medications & Allergies Home Medications Reviewed patient Home Medication Reconciliation performed by pharmacy medication reconciliations nuclear chemistry technician and/or nursing. Patients Allergies have been reviewed. Allergies Allergies Coded Allergies erythromycin base (Verified Allergy, Unknown, Vomiting, 06/02/21) Past Psnvssw-Cartee-Hggflb Hx Patient Social History Tobacco Use?: No Smoking Status: Never a Smoker Use of E-Cig and/or Vaping dev: No Substance use?: No Alcohol Use?: No Pt feels they are or have been: No Immunizations Up To Date Date of Influenza Vaccine: May 07, 2021 First/Initial COVID19 Vaccinat: november Second COVID19 Vaccination Sudheer: november Seasonal Allergies Seasonal Allergies: Yes Current Status status: No status: No Advance Directives: No Communicates: Verbally Primary Language: French Preferred Spoken Language: French Is interpretation needed?: No Sensory deficits: Vision impairment Implanted or Applied Medical D: None Past Medical History Surgeries: Gallbladder, Hysterectomy Hypertension DOUGH MIXER OPERATOR History: Hysterectomy Gastroesophageal Reflux Hypothyroidsim Blood Disorders: No Review of Systems Constitutional: No chills, No dizziness, No fever EENTM: No hearing loss, No eye pain, No vision loss Respiratory: No cough, No dyspnea on exertion, No short of breath Cardiovascular: No chest pain, No edema Gastrointestinal: No abdominal pain, No constipation, No diarrhea, No nausea, No vomiting Genitourinary: No dysuria, No frequency, No hematuria Musculoskeletal: No back pain; joint pain (L Knee); No muscle pain Skin: No change in color, No change in hair/nails Psychiatric/Neurological: Denies Headache, Denies Numbness, Denies Paresthesia All Other Systems Reviewed Negative Unless Noted: Yes Physical Exam Physical Exam Vital Signs Vital Signs - First Documented 06/09/21 06:25 Temp 36.4 Pulse 73 Resp 18 B/P (MAP) 163/77 (105) Pulse Ox 99 O2 Delivery Room Air Capillary Refill : Less Than 3 Seconds Height, Weight, BMI Height: '" Weight: lbs. oz. kg; 27.64 BMI Method: General Appearance: No Apparent Distress, WD/WN Eyes: Bilateral Eye Normal Inspection, Bilateral Eye PERRL, Bilateral Eye EOMI HEENT: PERRL/EOMI, Normal ENT Inspection, Pharynx Normal Neck: Full Range of Motion, Normal Inspection, Non Tender, Supple Respiratory: Chest Non Tender, Lungs Clear, Normal Breath Sounds, No Accessory Muscle Use, No Respiratory Distress Cardiovascular: Regular Rate, Rhythm, No Edema, No Gallop, No JVD, No Murmur, Normal Peripheral Pulses Gastrointestinal: Normal Bowel Sounds, Non Tender, Soft; No Distended, No Gua rding Rectal: Deferred Back: Normal Inspection, No CVA Tenderness, No Vertebral Tenderness Extremity: Normal Capillary Refill, No Calf Tenderness, Other (L knee with dressing in place, CDI. pulses 2+ bilaterally. sensation intact distal LLE. pt able to ambulate/bear weight on LLE with assistance of walker.) Neurologic/Psychiatric: Alert, Oriented x3, No Motor/Sensory Deficits, Normal Mood/Affect Skin: Normal Color, Warm/Dry, Other (surgical site to LLE covered with dressing) Lymphatic: No Adenopathy Results Results/Procedures Labs Laboratory Tests 06/10/21 05:47 Patient resulted labs reviewed. Assessment/Plan Assessment and Plan Assess & Plan/Chief Complaint s/p L total knee arthroplasty 06/09 Morphine HAT SPRAYER d/c Monitor pain control w/ dilaudid po PT/OT Encourage PO intake, ambulation, IS GERD HTN Hypothyroid Restart home meds CA ESTRADA DO 06/11/21 0529: HPI History of Present Illness: HPI/Chief Complaint Chief complaint: Medical management following a left total knee replacement postop day #1 History present illness: This is a 61-year-old white female who presents to room 426 after an uncomplicated left total knee replacement by Dr. STANTON. She currently is having good pain control. She is urinating well. Home meds have been restarted. Source: patient, RN/MD Exam Limitations: no limitations Past Mxdvvuc-Oaqzwq-Rqjkvo Hx Patient Social History Marrital Status: single Employed/Student: unemployed Smoking Status: Never a Smoker Past Medical History Hypertension Gastroesophageal Reflux Arthritis Review of Systems Constitutional: see HPI EENTM: no symptoms reported Respiratory: no symptoms reported Cardiovascular: no symptoms reported Gastrointestinal: no symptoms reported Genitourinary: no symptoms reported Musculoskeletal: joint pain (L Knee) Psychiatric/Neurological: No Symptoms Reported All Other Systems Reviewed Negative Unless Noted: Yes Physical Exam Physical Exam General Appearance: No Apparent Distress, WD/WN, Chronically ill Eyes: Bilateral Eye Normal Inspection, Bilateral Eye PERRL HEENT: PERRL/EOMI, Normal ENT Inspection, Pharynx Normal Neck: Full Range of Motion, Normal Inspection, Non Tender, Supple, Carotid Bruit Respiratory: Chest Non Tender, Lungs Clear, Normal Breath Sounds, No Accessory Muscle Use, No Respiratory Distress Cardiovascular: Regular Rate, Rhythm, No Edema, No Gallop, No JVD, No Murmur, Normal Peripheral Pulses Gastrointestinal: Normal Bowel Sounds, No Organomegaly, No Pulsatile Mass, Non Tender, Soft Back: Normal Inspection, No CVA Tenderness, No Vertebral Tenderness Extremity: Normal Capillary Refill, Normal Inspection, Normal Range of Motion, Non Tender, No Calf Tenderness, No Pedal Edema, Other (L knee with dressing in place, CDI. pulses 2+ bilaterally. sensation intact distal LLE. pt able to ambulate/bear weight on LLE with assistance of walker.) Neurologic/Psychiatric: Alert, Oriented x3, No Motor/Sensory Deficits, Normal Mood/Affect Skin: Normal Color, Warm/Dry Lymphatic: No Adenopathy Assessment/Plan Assessment and Plan Assess & Plan/Chief Complaint Assessment: Left total knee replacement postop day #1 GERD Hypertension Hypothyroidism Plan: Pain control DC HAT SPRAYER Supervisory-Addendum Brief Verification & Attestation Participated in pt care: history, MDM, physical Personally performed: exam, history, MDM, supervision of care Care discussed with: Medical Student Procedures: n/a Results interpretation: Verified all documentation Verification and Attestation of Medical Student E/M Service A medical student performed and documented this service in my presence. I reviewed and verified all information documented by the medical student and made modifications to such information, when appropriate. I personally performed the physical exam and medical decision making. Ca Estrada, Jun 11, 2021,05:27 KSIP ADKINS MED STUDENT Jun 10, 2021 14:35 CA ESTRADA DO Jun 11, 2021 05:29
--- NOTE | 2021-06-10 14:40 | Physical Therapy Daily Note ---
PT Daily Note-Current Subjective Patient agrees to PT. Pain Numeric Pain Scale: 7 Location: Left Location Body Site: Knee Pain Description: Acute Mental Status Patient Orientation: Normal For Age Transfers SCALE: Activities may be completed with or without assistive devices. 5-Xzpxzgamvw-txwwreh completes the activity by him/herself with no assistance from a helper. 5-Set-up or Clean-up Assistance-helper sets up or cleans up; patient completes activity. [place] assists only prior to or following the activity. 4-Supervision or Touching Assistance-helper provides verbal cues and/or touching/steadying and/or contact guard assistance as patient completes activity . Assistance may be provided throughout the activity or intermittently. 3-Partial/Moderate Assistance-helper does LESS THAN HALF the effort. [place] lifts, holds or supports trunk or limbs, but provides less than half the effort. 2-Substantial/Maximal Assistance-helper does MORE THAN HALF the effort. [place] lifts or holds trunk or limbs and provides more than half the effort. 8-Yjdfaqzfp-kwrend does ALL the effort. Patient does none of the effort to complete the activity. Or, the assistance of 2 or more helpers is required for the patient to complete the activity. If activity was not attempted, code reason: 7-Patient Refused. 9-Not Applicable-not attempted and the patient did not perform the activity before the current illness, exacerbation or injury. 10-Not Attempted due to Environmental Limitations-(lack of equipment, weather restraints, etc.). 88-Not Attempted due to Medical Conditions or Safety Concerns. Lying to Sitting/Side of Bed(Q: 6 Sit to Stand (QC): 6 Chair/Sxm-vb-Vqvmw Xfer(QC): 6 Weight Bearing Left Lower Extremity: Left Weight Bearing/Tolerated Gait Training Does the Patient Walk?: Yes Distance: 350' Walk 10 feet (QC): 6 Walk 50 ft with 2 Turns(QC): 6 Walk 150 ft (QC): 6 Gait Assistive Device: FWW VC's for body placement in FWW with patient walking "past or through" walker with gait Exercises Supine Ex: Ankle pumps, Quad Set, Heel Slides, Straight leg raise Supine Reps: 15 Seated Therapy Exercises: Long arc quads Seated Reps: 15 Assessment Current Status: Excellent Progress Patient progressing with treatment plan and will dismiss to home in a.m. Patient instructed to ambulate PRN if not connected to IV and if she feels safe and comfortable doing so. Patient voices understanding. PT Fdc Goals Fdc Goals PT Vendor Management Associate Goals Time Frame: Jun 16, 2021 Roll Left & Right (QC): 6 Sit to Lying (QC): 6 Lying-Sitting on Side/Bed(QC): 6 Sit to Stand (QC): 5 Chair/Vcu-nl-Fcnhu Xfer(QC): 5 Walk 10 feet (QC): 5 Walk 50ft with 2 Turns (QC): 5 Walk 150 ft (QC): 5 1 Step (curb) (QC): 4 4 Steps (QC): 4 PT Plan Treatment/Plan Treatment Plan: Continue Plan of Care Treatment Plan: Bed Mobility, Education, Functional Activity Javier, Functional Strength, Gait, Safety, Therapeutic Exercise, Transfers Treatment Duration: Jun 16, 2021 Frequency: 11 times per week Estimated Hrs Per Day: .25 hour per day Patient and/or Family Agrees t: Yes Time/GCodes Time In: 1346 Time Out: 1410 Total Billed Treatment Time: 24 Total Billed Treatment 1 visit EX 13 min GT 11 min AFTAB BENEDICT PT Jun 10, 2021 14:40
[2021-06-10 16:00] VITALS: BP 151/77
[2021-06-10] MEDS: CYCLOBENZAPRINE 10 MG (FLEXERIL) TAB PO PRN (16:05)
[2021-06-10 20:00] VITALS: BP 143/68
[2021-06-10] MEDS ORDERED: ZOLPIDEM 5 MG (AMBIEN) TAB PO SCH (21:00)
[2021-06-10] MEDS ORDERED: LOSARTAN 50 MG (COZAAR) TAB PO SCH (21:00)
[2021-06-10] MEDS ORDERED: MONTELUKAST 10 MG (SINGULAIR) TAB PO SCH (21:00)
[2021-06-11 00:09] VITALS: BP 144/74
[2021-06-11] MEDS: HYDROmorphone (DILAUDID) 4 MG TAB PO PRN ×4 (03:45→13:39)
[2021-06-11] MEDS: CYCLOBENZAPRINE 10 MG (FLEXERIL) TAB PO PRN ×3 (03:53→13:39)
[2021-06-11 04:27] VITALS: BP 146/77
[2021-06-11] MEDS: ENOXAPARIN 30 MG/0.3 ML (LOVENOX) SYR SC SCH (05:28)
[2021-06-11] MEDS: MULTIVIT W/MINERALS TAB (THERAGRAN M) PO SCH (05:28)
[2021-06-11 06:03] LABS: BASOPHILS % (AUTO) 0 % (0-10); EOSINOPHILS % (AUTO) 0 % (0-10); HEMATOCRIT 30 % (35-52); HEMOGLOBIN 9.9 g/dL (11.5-16.0); LYMPHOCYTES # (AUTO) 0.8 10^3/uL (1.0-4.0); LYMPHOCYTES % (AUTO) 8 % (12-44); MEAN CORPUSCULAR HEMOGLOBIN 30 pg (25-34); MEAN CORPUSCULAR HGB CONC 34 g/dL (32-36); MEAN CORPUSCULAR VOLUME 88 fL (80-99); MONOCYTES # (AUTO) 1.1 10^3/uL (0.0-1.0); MONOCYTES % (AUTO) 11 % (0-12); NEUTROPHILS # (AUTO) 7.8 10^3/uL (1.8-7.8); NEUTROPHILS % (AUTO) 80 % (42-75); PLATELET COUNT 205 10^3/uL (130-400); WHITE BLOOD COUNT 9.8 10^3/uL (4.3-11.0)
[2021-06-11] MEDS ORDERED: LEVOTHYROXINE 88 MCG (LEVOTHORID) TAB PO SCH (06:30)
[2021-06-11 06:33] LABS: ALBUMIN 3.2 GM/DL (3.2-4.5); BILIRUBIN,TOTAL 0.6 MG/DL (0.1-1.0); CALCIUM 8.1 MG/DL (8.5-10.1); CREATININE SERUM 0.71 MG/DL (0.60-1.30); POTASSIUM 3.5 MMOL/L (3.6-5.0); TOTAL PROTEIN 5.5 GM/DL (6.4-8.2)
--- NOTE | 2021-06-11 07:06 | DISCHARGE SUMMARY ---
DATE OF SERVICE: DIAGNOSES: 1. Left knee primary osteoarthritis. 2. Thyroid disease. 3. Seasonal rhinitis. 4. Reflux. 5. Hypertension. PROCEDURE: Left total knee arthroplasty. SUMMARY: The patient is a 61-year-old female who underwent a left total knee arthroplasty on the day of admission. Postoperatively, she did very well. At the time of discharge, her wound was clean and dry. She had no calf tenderness. Negative Homans sign. She was tolerating a diet well and tolerating pain with oral pain medication. CONDITION AT DISCHARGE: Good. DISCHARGE DIET: Regular. FOLLOWUP: Followup is in 3 weeks. DISCHARGE MEDICATIONS: Home medications, one aspirin per day for 30 days and Percocet as needed for pain. Job ID: [id number] DocumentID: [id number] Dictated Date: 06/10/2021 16:59:51 Leather Stretcher Date: 06/11/2021 07:05:41 Dictated By: DAVID THEODORE MD
--- NOTE | 2021-06-11 07:06 | Progress Note ---
Standard Progress Note Progress Notes/Assess & Plan Date Seen by a Provider: Jun 11, 2021 Time Seen by a Provider: 07:05 Progress/Assessment & Plan post op check no complaints radiographs--HW well positioned without fracture LLE--2 plus DP pulse with brisk cap refill, intact DF and PF of toes and ankle with intact sensation to light touch throughout s/p LTKA mobilize as able Final Diagnosis no complaints Vital Signs Date Time Temp Pulse Resp B/P (MAP) Pulse Ox O2 Delivery O2 Flow Rate FiO2 06/11/21 04:27 36.0 99 17 146/77 (100) 95 Nasal Cannula 3.00 06/11/21 00:09 37.4 116 19 144/74 (97) 94 Nasal Cannula 3.00 06/10/21 21:00 Room Air 06/10/21 20:00 38.0 101 24 143/68 (93) 92 Room Air 06/10/21 16:00 39.0 100 20 151/77 (101) 94 Room Air 06/10/21 11:42 37.0 91 16 136/79 (98) 95 Room Air 06/10/21 08:00 Room Air 06/10/21 07:40 37.2 90 16 132/71 (91) 94 Room Air I & O 06/11/21 07:00 Intake Total 2290 ml Balance 2290 ml Laboratory Tests Test 06/11/21 05:40 Range/Units White Blood Count 9.8 4.3-11.0 10^3/uL Red Blood Count 3.35 L 3.80-5.11 10^6/uL Hemoglobin 9.9 L 11.5-16.0 g/dL Hematocrit 30 L 35-52 % Mean Corpuscular Volume 88 80-99 fL Mean Corpuscular Hemoglobin 30 25-34 pg Mean Corpuscular Hemoglobin Concent 34 32-36 g/dL Red Cell Distribution Width 13.6 10.0-14.5 % Platelet Count 205 130-400 10^3/uL Mean Platelet Volume 11.0 9.0-12.2 fL Immature Granulocyte % (Auto) 1 % Neutrophils (%) (Auto) 80 H 42-75 % Lymphocytes (%) (Auto) 8 L 12-44 % Monocytes (%) (Auto) 11 0-12 % Eosinophils (%) (Auto) 0 0-10 % Basophils (%) (Auto) 0 0-10 % Neutrophils # (Auto) 7.8 1.8-7.8 10^3/uL Lymphocytes # (Auto) 0.8 L 1.0-4.0 10^3/uL Monocytes # (Auto) 1.1 H 0.0-1.0 10^3/uL Eosinophils # (Auto) 0.0 0.0-0.3 10^3/uL Basophils # (Auto) 0.0 0.0-0.1 10^3/uL Immature Granulocyte # (Auto) 0.1 0.0-0.1 10^3/uL Sodium Level 130 L 135-145 MMOL/L Potassium Level 3.5 L 3.6-5.0 MMOL/L Chloride Level 99 98-107 MMOL/L Carbon Dioxide Level 23 21-32 MMOL/L Anion Gap 8 5-14 MMOL/L Blood Urea Nitrogen 9 7-18 MG/DL Creatinine 0.71 0.60-1.30 MG/DL Estimat Glomerular Filtration Rate 84 BUN/Creatinine Ratio 13 Glucose Level 111 H 70-105 MG/DL Calcium Level 8.1 L 8.5-10.1 MG/DL Corrected Calcium 8.7 8.5-10.1 MG/DL Total Bilirubin 0.6 0.1-1.0 MG/DL Aspartate Amino Transf (AST/SGOT) 17 5-34 U/L Alanine Aminotransferase (ALT/SGPT) 16 0-55 U/L Alkaline Phosphatase 72 40-136 U/L Total Protein 5.5 L 6.4-8.2 GM/DL Albumin 3.2 3.2-4.5 GM/DL LLE--no calf tenderness. Neg Rafael's incision with echymosis. no erythema s/p LTKA doing well DC home after PT today DAVID THEODORE MD Jun 11, 2021 07:06
[2021-06-11 08:00] VITALS: BP 137/92
[2021-06-11] MEDS: ASPIRIN E.C. 81 MG (ECOTRIN) TAB PO SCH (08:36)
[2021-06-11] MEDS: PANTOPRAZOLE 20 MG TABLET (PROTONIX) PO SCH (08:36)
[2021-06-11] MEDS: SENNA W/DOCUSATE (SENOKOT S) TABLET PO SCH (08:37)
[2021-06-11] MEDS: OXYBUTYNIN (DITROPAN) 5 MG TAB PO SCH ×2 (08:37→13:18)
--- NOTE | 2021-06-11 09:49 | Occupational Ther Daily Note ---
OT Current Status-Daily Note Subjective Pt was lying supine in bed upon OT arrival. Pt stated she was in pain from just getting back from walking w/ PT. Pt stated she informed the nurse she was ready for a pain pill. Pt agreed to OT tx session. Pain Numeric Pain Scale: 9 Location: Left Location Body Site: Knee Mental Status/Objective Patient Orientation: Person, Place, Time, Situation Attachments: Polar Pack ADL-Treatment Therapy Code Descriptions/Definitions Functional [place] Measure: 0=Not Assessed/NA 4=Minimal Assistance 1=Total Assistance 5=Supervision or Setup 2=Maximal Assistance 6=Modified [place] 3=Moderate Assistance 7=Complete IndependenceSCALE: Activities may be completed with or without assistive devices. 2-Sstmackmya-efldrwd completes the activity by him/herself with no assistance from a helper. 5-Set-up or Clean-up Assistance-helper sets up or cleans up; patient completes activity. [place] assists only prior to or following the activity. 4-Supervision or Touching Assistance-helper provides verbal cues and/or touching/steadying and/or contact guard assistance as patient completes activity. Assistance may be provided throughout the activity or intermittently. 3-Partial/Moderate Assistance-helper does LESS THAN HALF the effort. [place] lifts, holds or supports trunk or limbs, but provides less than half the effort. 2-Substantial/Maximal Assistance-helper does MORE THAN HALF the effort. [place] lifts or holds trunk or limbs and provides more than half the effort. 3-Rhqwvbjfl-nzbhes does ALL the effort. Patient does none of the effort to complete the activity. Or, the assistance of 2 or more helpers is required for the patient to complete the activity. If activity was not attempted, code reason: 7-Patient Refused. 9-Not Applicable-not attempted and the patient did not perform the activity before the current illness, exacerbation or injury. 10-Not Attempted due to Environmental Limitations-(lack of equipment, weather restraints, etc.). 88-Not Attempted due to Medical Conditions or Safety Concerns. On/Off Footwear: 3 (Pt doffed R sock using food critic, min A donning sock with sock aide, verbal cues for technique.) Other Treatment Pt was lying supine in bed upon OT arrival. Pt stated she was in pain from getting back from PT, with pain at a 9, nurse was notified by pt. Pt agreed to tx session while lying supine in bed. Pt was educated on pain management, AE including a sock aide and food critic, and meaning of OT. Pt performed while lying supine in bed w/ HOB elevated for skill, donning/doffing R foot gripper socks w/ food critic and sock aide, required VC's for accuracy. Post tx session, pt was lying supine in bed, polar pack on LLE, call light within reach, and all needs met. Education OT Patient Education: Correct positioning, Energy conservation, Modified ADL techniques, Progress toward Goal/Update tx plan, Purpose of tx/functional activities, Use of adapted equipment Teaching Recipient: Patient Teaching Methods: Demonstration, Discussion Response to Teaching: Verbalize Understanding, Return Demonstration OT Brick Tender Goals Group Home Goals Time Frame: Jun 18, 2021 Eating (QC): 6 Oral Hygiene (QC): 6 Toileting Hygiene (QC): 4 Shower/Bathe Self (QC): 4 Upper Body Dressing (QC): 5 Lower Body Dressing (QC): 4 On/Off Footwear (QC): 3 Additional Goals: 1-Demonstrate ADL Tasks, 2-Verbalize Understanding, 3- ImproveStrength/Javier 1=Demonstrate adherence to instructed precautions during ADL tasks. 2=Patient will verbalize/demonstrate understanding of assistive devices/modifications for ADL. 3=Patient will improve strength/tolerance for activity to enable patient to perform ADL's. OT Education/Plan Problem List/Assessment Assessment: Decreased Activ Tolerance, Decreased Safety Aware, Impaired Coordination, Impaired Funct Balance, Impaired I ADL's, Impaired Self-Care Skills Pt would benefit from short term skilled OT services in order to address concerns pt may have with ADL function at discharge. Discharge Recommendations Plan/Recommendations: Continue POC Treatment Plan/Plan of Care Patient would benefit from OT for education, treatment and training to promote independence in ADL's, mobility, safety and/or upper extremity function for ADL's. Plan of Care: ADL Retraining, Functional Mobility, UE Funct Exercise/Act Treatment Duration: Jun 18, 2021 Frequency: 5 times per week Estimated Hrs Per Day: .25 hour per day Rehab Potential: Fair Time/GCodes Start Time: 08:43 Stop Time: 08:57 Total Time Billed (hr/min): 14 Billed Treatment Time 1, ADL DAWSON HILLMAN OT Jun 11, 2021 09:49
--- NOTE | 2021-06-11 09:52 | Physical Therapy Daily Note ---
PT Daily Note-Current Subjective Patient reports 9/10 left knee pain. Pain Numeric Pain Scale: 9 Location: Left Location Body Site: Knee Pain Description: Acute Comment: meds issued Mental Status Patient Orientation: Normal For Age Transfers SCALE: Activities may be completed with or without assistive devices. 2-Wazciufecy-qnmizgr completes the activity by him/herself with no assistance f rom a helper. 5-Set-up or Clean-up Assistance-helper sets up or cleans up; patient completes activity. [place] assists only prior to or following the activity. 4-Supervision or Touching Assistance-helper provides verbal cues and/or touching/steadying and/or contact guard assistance as patient completes activity. Assistance may be provided throughout the activity or intermittently. 3-Partial/Moderate Assistance-helper does LESS THAN HALF the effort. [place] lifts, holds or supports trunk or limbs, but provides less than half the effort. 2-Substantial/Maximal Assistance-helper does MORE THAN HALF the effort. [place] lifts or holds trunk or limbs and provides more than half the effort. 3-Zldreifjg-ksmktt does ALL the effort. Patient does none of the effort to complete the activity. Or, the assistance of 2 or more helpers is required for the patient to complete the activity. If activity was not attempted, code reason: 7-Patient Refused. 9-Not Applicable-not attempted and the patient did not perform the activity before the current illness, exacerbation or injury. 10-Not Attempted due to Environmental Limitations-(lack of equipment, weather restraints, etc.). 88-Not Attempted due to Medical Conditions or Safety Concerns. Lying to Sitting/Side of Bed(Q: 6 Sit to Stand (QC): 6 Chair/Phm-ih-Mvbpo Xfer(QC): 6 Weight Bearing Left Lower Extremity: Left Weight Bearing/Tolerated Gait Training Does the Patient Walk?: Yes Distance: 300'x 2 Walk 10 feet (QC): 4 Walk 50 ft with 2 Turns(QC): 4 Walk 150 ft (QC): 4 Walking 10ft/uneven surface-QC: 4 Gait Assistive Device: FWW very slow, antalgic, step to gait sequence with VC's for left LE WBAT status Stair Training Stair Training: Handrails/: 2 handrails #of Steps: 8 1 Step (curb) (QC): 4 4 Steps (QC): 4 Stairs: Pattern: Step to Exercises Supine Ex: Ankle pumps, Quad Set, Heel Slides, Straight leg raise Supine Reps: 15 Seated Therapy Exercises: Long arc quads Seated Reps: 15 Assessment Patient progressing with treatment plan. Patient does appear to self limit with exercises and AROM due to pain. Plan dismissal on this date. PT Inspector Rag Sorting Goals Shelter Goals PT Inspector Rag Sorting Goals Time Frame: Jun 16, 2021 Roll Left & Right (QC): 6 Sit to Lying (QC): 6 Lying-Sitting on Side/Bed(QC): 6 Sit to Stand (QC): 5 Chair/Kcz-hz-Ufhfr Xfer(QC): 5 Walk 10 feet (QC): 5 Walk 50ft with 2 Turns (QC): 5 Walk 150 ft (QC): 5 1 Step (curb) (QC): 4 4 Steps (QC): 4 PT Plan Treatment/Plan Treatment Plan: Discontinue PT Treatment Plan: Bed Mobility, Education, Functional Activity Javier, Functional Strength, Gait, Safety, Therapeutic Exercise, Transfers Treatment Duration: Jun 16, 2021 Frequency: 11 times per week Estimated Hrs Per Day: .25 hour per day Patient and/or Family Agrees t: Yes Time/GCodes Time In: 751 Time Out: 830 Total Billed Treatment Time: 39 Total Billed Treatment 1 visit EX 14 min GT 16 min FA 9 min AFATB BENEDICT PT Jun 11, 2021 09:52
--- NOTE | 2021-06-12 01:47 | Progress Note - Hospitalist ---
JEDSKIP MED STUDENT 06/12/21 0147: Subjective HPI/CC On Admission Date Seen by Provider: Jun 11, 2021 Time Seen by Provider: 09:00 Chief complaint: Medical management following a left total knee replacement postop day #1 History present illness: This is a 61-year-old white female who presents to room 426 after an uncomplicated left total knee replacement by Dr. THEODORE. She currently is having good pain control. She is urinating well. Home meds have been restarted. Subjective/Events-last exam Pt doing well this morning. Pain under control with oral medication. States she had some issues with sleeping r/t pain, but otherwise uneventful. Tolerating po intake. Ambulating with assistance of walker. No complaints of nausea/vomiting, abd pain, fevers/chills. Review of Systems General: No Chills, No Fatigue HEENT: No Visual Changes, No Eye Pain, No Ear Pain Pulmonary: No Dyspnea, No Cough Cardiovascular: Edema (LLE); No: Chest Pain, Palpitations Gastrointestinal: No: Nausea, Vomiting, Abdominal Pain, Diarrhea, Constipation Genitourinary: No Dysuria, No Incontinence Musculoskeletal: leg pain (LLE); No: neck pain, shoulder pain, back pain Neurological: No: Weakness, Numbness, Confusion Objective Exam Vital Signs Vital Signs Date Time Temp Pulse Resp B/P (MAP) Pulse Ox O2 Delivery O2 Flow Rate FiO2 06/11/21 13:31 06/11/21 09:00 Room Air 06/11/21 08:00 36.3 104 22 94 06/11/21 04:27 3.00 Capillary Refill : Less Than 3 Seconds General Appearance: No Apparent Distress, WD/WN HEENT: PERRL/EOMI, Normal ENT Inspection, Pharynx Normal Neck: Full Range of Motion, Normal Inspection, Non Tender, Supple Respiratory: Chest Non Tender, Lungs Clear, Normal Breath Sounds, No Accessory Muscle Use, No Respiratory Distress Cardiovascular: Regular Rate, Rhythm (runs tachy at times; 90-110), No JVD, Normal Peripheral Pulses Gastrointestinal: Normal Bowel Sounds, Non Tender, Soft Rectal: Deferred Back: Normal Inspection, No CVA Tenderness, No Vertebral Tenderness Extremity: Normal Capillary Refill, Other (LLE: limited but improving ROM L knee, moderate amount of swelling/ecchymosis around knee, anterior midline incision to L knee with dressing in place, serosanguinous drainage, painful with movement/palpation. NVI. BUE, RLE: full ROM, strength +5/5, NVI. ) Neurologic/Psychiatric: Alert, Oriented x3, No Motor/Sensory Deficits, Normal Mood/Affect Skin: Warm/Dry, Ecchymosis (large area of ecchymosis around L knee) Lymphatic: No Adenopathy Results/Procedures Lab Laboratory Tests 06/11/21 05:40 Patient resulted labs reviewed. Assessment/Plan Assessment and Plan Assess & Plan/Chief Complaint s/p L total knee arthroplasty 06/09 Monitor pain control w/ dilaudid po PT/OT Encourage PO intake, ambulation, IS GERD HTN Hypothyroid Restart home meds D/C today CA SO DO 06/12/21 0903: Subjective Subjective/Events-last exam Patient ready for discharge Labs reviewed Objective Exam General Appearance: No Apparent Distress, WD/WN Respiratory: Lungs Clear Cardiovascular: Regular Rate, Rhythm (runs tachy at times; 90-110) Neurologic/Psychiatric: Alert, Oriented x3, No Motor/Sensory Deficits, Normal Mood/Affect Assessment/Plan Assessment and Plan Assess & Plan/Chief Complaint Discharge planned Supervisory-Addendum Brief Verification & Attestation Participated in pt care: history, MDM, physical Personally performed: exam, history, MDM, supervision of care Care discussed with: Medical Student Procedures: n/a Results interpretation: Verified all documentation Verification and Attestation of Medical Student E/M Service A medical student performed and documented this service in my presence. I reviewed and verified all information documented by the medical student and made modifications to such information, when appropriate. I personally performed the physical exam and medical decision making. Ca So, Jun 12, 2021,09:02 SKIP ADKINS MED STUDENT Jun 12, 2021 01:47 CA SO DO Jun 12, 2021 09:03
== END 2021-06-11 13:45 | disposition home health service (06) | DRG 470 ==
LOC: 4TH 06:04 → SURG 06:05 → 4TH 10:00
PROVIDERS: ADMIT Orthopaedic Surgery; ATTEND Orthopaedic Surgery
PROC: 0SRD0J9 Replacement of Left Knee Joint with Synthetic Substitute, Cemented, Open Approach (ICD-10-PCS; principal; 2021-06-09 07:32)
DX: M17.12 Unilateral primary osteoarthritis, left knee (principal); K21.9 Gastro-esophageal reflux disease without esophagitis; I10 Essential (primary) hypertension; E03.9 Hypothyroidism, unspecified; J31.0 Chronic rhinitis
CPT/HCPCS: 36415; 73560; 80053; 85025; 86850; 86900; 86901

== ENCOUNTER → 2021-11-05 | Outpatient (CLI) | payer BC ==
[~2021-11-05] MED LIST changes: +CYCL10TA25 PO; -CYCL10TA9 PO; +DICY20TA PO; -DICY20TA10 PO; +FEXO-249 PO; -FEXO-46 PO; +MONT-40 PO; -MONT10TA32 PO
--- NOTE | 2021-11-05 11:53 | Diagnostic Imaging Report ---
EXAMINATION: Magnetic resonance imaging of the right knee without intravenous contrast DATE: November 05, 2021. COMPARISON: None. INDICATION: 61-year-old female, right knee pain. TECHNIQUE: Multiplanar, multisequence non contrast enhanced MR imaging was accomplished. FINDINGS: MENISCI: There is a tear involving the posterior root attachment of the medial meniscus. There is 4 mm medial meniscal extrusion. There is diffusely increased signal in the posterior horn of the medial meniscus as well. The lateral meniscus is intact. LIGAMENTS AND TENDONS: The anterior and posterior cruciate ligaments are intact. The medial collateral ligament is intact. The iliotibial band, mid third lateral capsular ligament, fibular collateral ligament, biceps femoris tendon and conjoined tendon are intact. The quadriceps tendon and patella ligament are intact. JOINT: There are broad areas of full-thickness cartilage loss of the medial patellar facet and median patellar ridge. There is a cartilage flap extending near the bone cartilage interface involving the lateral patellar facet measuring approximately 3 mm in transverse extent. There is a full-thickness cartilage defect involving the mid weightbearing portion of the medial femoral condyle measuring 16 x 6 mm in size. There is adjacent thinning of the cartilage of the medial tibial plateau. The lateral compartment cartilage is grossly intact. There is no large knee joint effusion, prominent synovitis, or identified intra-articular body. BONE: There is low-level marrow edema in the medial tibial plateau most likely reflecting stress related marrow changes versus bone contusion. There is lack of adjacent edema in the medial femoral condyle. There is degenerative related marrow edema in the patella. BURSAE AND SOFT TISSUES: There is a multiloculated Maravilla's cyst with debris in the Maravilla's cyst. IMPRESSION: 1. Tear of the posterior root attachment of the medial meniscus with medial meniscal extrusion. There is also prominent increased signal within the posterior horn of the medial meniscus which could reflect meniscal contusion. 2. Intact lateral meniscus. 3. Intact anterior and posterior cruciate ligaments. Additional ligaments and tendons are intact. 4. Severe patellofemoral and moderate to severe medial compartment osteoarthritis without large knee joint effusion. 5. Edema-like signal in the medial tibial plateau most likely reflecting stress related marrow changes without current fracture. 6. Multiloculated Maravilla's cyst with debris in the Maravilla's cyst. Dictated by: Dictated on workstation # [id number]
== END ==
LOC: RAD 10:15
PROVIDERS: ATTEND Orthopaedic Surgery
DX: S83.241A Other tear of medial meniscus, current injury, right knee, initial encounter (principal); M17.11 Unilateral primary osteoarthritis, right knee; M71.21 Synovial cyst of popliteal space [Baker], right knee; X58.XXXA Exposure to other specified factors, initial encounter
CPT/HCPCS: 73721